=== PATIENT | male | born 1940 | race Caucasian/White ===

== ENCOUNTER 2019-01-05 16:55 | Inpatient (IN) | payer OTHER ==
[~2019-01-05] VITALS: Ht 165.1 cm; Wt 137.0 kg
[2019-01-05 20:00] LABS: Basophils # (auto) 0.1 uL; Basophils % (auto) 0.3 % (0.0-2.0); Eosinophils # (auto) 0 uL; Hematocrit 48.4 % (41.0-53.0); Hemoglobin 15.7 g/dL (13.5-17.5); Lymphocytes # (auto) 0.4 uL; Lymphocytes % (auto) 1.6 % (10.0-50.0); Mean Corpuscular Hemoglobin 28.2 pg (28.0-32.0); Mean Corpuscular Hgb Conc. 32.4 g/dL (32.0-36.0); Mean Corpuscular Volume 87.1 fL (80.0-100.0); Monocytes # (auto) 1.7 uL; Monocytes % (auto) 6.8 % (0.0-12.0); Neutrophils # (auto) 22.6 uL; Neutrophils % (auto) 91.3 % (37.0-80.0); Nucleated Red Blood Cells % 0.1 %; Platelet Count (auto) 160 10^3/uL (140-450); Red Blood Cells 5.55 10^6/uL (4.5-5.90); Red Cell Distribution Width 15.6 % (11.8-14.3); White Blood Cell 24.8 10^3/uL (4.4-10.8)
[2019-01-05 20:16] LABS: Albumin 3.8 g/dL (3.4-5.0); Calcium 9.1 mg/dL (8.5-10.1); Magnesium 2.7 mg/dL (1.6-2.6)
[2019-01-05 20:18] LABS: Lactic Acid w/Reflex 2.8 mmol/L (0.4-2.0)
[2019-01-05 20:25] LABS: BUN/Creatinine Ratio 15.2; Bilirubin, Total 0.6 mg/dL (0.2-1.0); Total Protein 7.4 g/dL (6.4-8.2)
[2019-01-05] MEDS ORDERED: ACETAMINOPHEN 325 MG TAB PO ONE (20:45)
[2019-01-05] MEDS ORDERED: PIPERACILLIN-TAZOB 3.375GM 100 ML IV ONE (21:00)
[2019-01-05] MEDS ORDERED: VANCOMYCIN 1GM/250ML 250 ML IV ONE (21:00)
[2019-01-05] MEDS ORDERED: SODIUM CHLORIDE 0.9% 3,400 ML IV ONE (21:00)
[2019-01-05 21:29] LABS: INR 0.94 (0.9-1.15); Partial Thromboplastin Time 22.5 sec (23.78-33.04); Prothrombin Time 10.1 sec (9.27-12.13)
[2019-01-05 22:53] LABS: Urine Bacteria NONE SEEN /hpf (None Seen); Urine Blood 2+ /uL (Negative); Urine Specific Gravity 1.021 (1.001-1.035); Urine WBC 3 /hpf (0 - 3)
[2019-01-06] MEDS ORDERED: ONDANSETRON HCL 4 MG/2 ML VIAL IV PRN (00:30)
[2019-01-06] MEDS ORDERED: DOCUSATE SOD 100 MG CAP PO PRN (00:30)
[2019-01-06] MEDS ORDERED: NITROGLYCERIN 0.4 MG SL TAB SL PRN (00:30)
[2019-01-06] MEDS ORDERED: HYDROcodone-ACET 5/325MG TAB PO PRN (00:30)
[2019-01-06] MEDS ORDERED: TEMAZEPAM 15 MG CAP PO PRN (00:30)
[2019-01-06] MEDS ORDERED: VANCOMYCIN PER PHARMACY 0 MG IV SCH (00:30)
[2019-01-06] MEDS ORDERED: ACETAMINOPHEN 325 MG TAB PO PRN (00:30)
[2019-01-06] MEDS ORDERED: MORPHINE SULF INJ 2 MG/ML SYRINGE 1ML IV PRN (00:30)
[2019-01-06] MEDS ORDERED: ATORVASTATIN 20 MG TAB PO ONE (00:30)
[2019-01-06] MEDS: SODIUM CHLORIDE 0.9% 1,000 ML IV SCH ×2 (01:29→13:50)
[2019-01-06 03:30] VITALS: BP 160/84
--- NOTE | 2019-01-06 03:30 | NUR ---
Admit to [facility] JAI HERNANDEZ admitted to [facility] via hospital bed on mechanical development engineer, and portable 02. Patient connected to unit monitoring and oxygen, and weighed by bed scale. Patient oriented to Diann mejia RN, unit, room, bed, and unit policies regarding patient care and visiting hours. Pt verbalized understanding. Pt is awake and alert, but A&O x1, able to answer simple questions. Pt stated he cannot remember in many questions regarding admission questions, will chart as many as possible regarding admission questions. Breathing on O2NC 2LPM, good POX but SOB at rest, wheezing at upper airway, lungs sound CTA, RR 28/ursula, unable to finish the sentence. TLC at right IJ, flushed well, CDI site, infusing NS at 75ml/hr. Dorsey's cath hung to gravity with clear light yamila urine. Both legs swollen +1. Put SCD to right leg. Left leg redness and c/o mild pain, tiny skin tear at left heel, will d/s and put on band-aid. Bed in low position, call light within reach, all alarms are audible, fall and safety precaution in place.
[2019-01-06] MEDS: PIPERACILLIN-TAZOB 3.375GM 100 ML IV SCH ×3 (05:59→17:51)
[2019-01-06] MEDS: FUROSEMIDE 20 MG TAB PO SCH ×2 (06:03→17:52)
--- NOTE | 2019-01-06 07:30 | NUR ---
RECEIVED PATIENT `SEMI FOWLERS IN BED, AWAKEN WHEN NAME WAS CALLED, A/O TIMES 2, O2 AT 2L BY N/C, PATIENT IS VERY HARD OF HEARING, AN SLIGHTLY CONFUSED, RECINOS TO GRAVITY, SCD TO THE RT LEG, LEFT IS SWOLLEN ,RED AND WARM TO THE TOUCH, TLC TO THE RT JUGULAR WITH NS INFUSING AT 75ML/HR BY THE IV PUMP, DENIES PAIN
[2019-01-06 07:45] VITALS: BP 133/83
[2019-01-06] MEDS ORDERED: OME20T PO (07:46)
[2019-01-06] MEDS ORDERED: LISI10TA6 PO (07:46)
[2019-01-06] MEDS ORDERED: CALCTAB25 PO (07:46)
[2019-01-06] MEDS ORDERED: VENL150C2 PO (07:46)
[2019-01-06] MEDS ORDERED: ASPI81TA27 PO (07:46)
[2019-01-06] MEDS ORDERED: FURO20TA3 PO (07:46)
[2019-01-06] MEDS ORDERED: FENO54TA4 PO (07:46)
[2019-01-06] MEDS ORDERED: FELO10TA PO (07:46)
[2019-01-06] MEDS ORDERED: POTA1TAB61 PO (07:46)
[2019-01-06] MEDS ORDERED: TAMS0.4C36 PO (07:47)
[2019-01-06] MEDS ORDERED: MORP-109 PO (07:47)
--- NOTE | 2019-01-06 08:00 | NUR ---
SPOKE TO THE DAUGHTER KAITLIN AND STATED HE BREATHES VERY SHALLOW AT HOME ALL OF THE TIME, IT'S HIS NORM
--- NOTE | 2019-01-06 08:30 | NUR ---
PATIENT WAS ASSISTED WITH EATING HIS BREAKFAST
--- NOTE | 2019-01-06 08:33 | NUR ---
I faxed clinical information to [facility] [phone] including ER notes, H&P, xrays, current vitals, current labs and current medication list.
--- NOTE | 2019-01-06 09:30 | NUR ---
INJECTED FOR THE STRESS TEST Addendum: 01/06/19 at 1129 by Amy Mckeon RN DISREGARD WRONG PATIENT
--- NOTE | 2019-01-06 09:30 | NUR ---
SEMI FOWLERS IN BED, WITH EYES CLOSED APPEARS TO BE SLEEPING
[2019-01-06] MEDS: ASPirin 81 mg TAB PO SCH (10:44)
[2019-01-06] MEDS: LISINOPRIL 10 MG TAB PO SCH (10:45)
--- NOTE | 2019-01-06 10:45 | NUR ---
DR ENG IN TO SEE THE PATIENT
[2019-01-06] MEDS: VANCOMYCIN 1GM/250ML 250 ML IV SCH ×2 (10:49→22:59)
--- NOTE | 2019-01-06 10:50 | NUR ---
DISCUSSED MEDICATIONS WITH THE PATIENT REGARDING THE DOSAGE, USAGE, AND THE SIDE EFFECTS, VERBALIZED THAT HE UNDERSTOOD
--- NOTE | 2019-01-06 10:50 | NUR ---
TAKEN TO STRESS TEST BY THE BED, WITH NURSE MARII Addendum: 01/06/19 at 1129 by Amy Mckeon RN DISREGARD WRONG PATIENT
[2019-01-06] MEDS: PANTOPRAZOLE 40 MG TAB PO SCH (10:51)
--- NOTE | 2019-01-06 11:00 | NUR ---
WOUND CARE NOTE: IN TO SEE PATIENT AT THIS TIME PER WOUND CARE CONSULT REQUEST. PATIENT RECENTLY ADMITTED TO [facility] WITH DIAGNOSIS OF SEPSIS. CURRENT PATRIC SCORE IS 15. PATIENT CAN TURN WITH MINIMAL ASSISTANCE BY STAFF. PATIENT NOTED UPON ADMIT TO HAVE A SMALL SKIN TEAR TO THE LEFT POSTERIOR HEEL. WOUND PHOTO TAKEN AT THAT TIME BY BEDSIDE NURSE FOR REFERENCE. WOUND MEASURES .5 X .5 CM. WOUND BED AND PERIWOUND IS PINK. SCANT SEROUS DRAINAGE NOTED. APPLIED THERAHONEY, BANDAID. SACRAL SKIN IS PINK, BLANCHABLE, INTACT, ARE OTHER BONY PROMINENCES. RECOMMEND: FREQUENT TURN SCHEDULE Q2 HOURS, PRN CONDITION PERMITS, WITH PRESSURE REDISTRIBUTION USING PILLOWS/WEDGES, BID/PRN APPLICATION WITH MOISTURE BARRIER CREAM AND OPTIFOAM GENTLE SACRAL DRESSING, EOD/PRN DRESSING CHANGE TO SKIN TEAR TO LEFT POSTERIOR HEEL, DIETARY CONSULT, SKIN/WOUND CARE PLAN, CONTINUED MONITORING BY WOUND CARE TEAM. Addendum: 01/06/19 at 1643 by Kimberly Anguiano RN Amended: Links added.
--- NOTE | 2019-01-06 11:29 | NUR ---
WOUND CARE NURSE MELISSA KEATING TO SEE THE PATIENT
[2019-01-06 11:47] VITALS: BP 132/70
--- NOTE | 2019-01-06 12:30 | NUR ---
SAT UP IN BED AND ATE HIS LUNCH NO HELP NEEDED FAMILY AT THE BEDSIDE
[2019-01-06] MEDS: amLODIPine BESYLATE 5 MG TAB PO SCH (12:33)
--- NOTE | 2019-01-06 13:00 | NUR ---
DR GUERRIER INTO SEE THE PATIENT, AND WROTE ORDERS FOR V-Q MAGANA AND MED NEB TX FOR THE WHEEZING
[2019-01-06] MEDS ORDERED: PANTOPRAZOLE 40 MG/10 ML VIAL INJ IV ONE (13:30)
[2019-01-06] MEDS ORDERED: ENOXAPARIN SOD 40 MG/0.4 ML SYRINGE SC ONE (13:30)
--- NOTE | 2019-01-06 14:07 | NUR ---
family left and went home,
--- NOTE | 2019-01-06 14:29 | NUR ---
URINE SPECIMEN COLLECTED AND SENT
--- NOTE | 2019-01-06 14:30 | NUR ---
SPOKE WITH [facility] IN [facility] AND STATED IS NOT ABLE TO DO THE V-Q SCAN DUE TO PATIENT'S SIZE 276LBS AND PATIENT HAS LARGE CHEST AND ABD
--- NOTE | 2019-01-06 14:32 | NUR ---
WILL ORDER US OF THE LEGS DUE TO REDNESS
--- NOTE | 2019-01-06 14:45 | NUR ---
EXPLAIN TO DR GUERRIER THAT THE PATIENT WILL NOT BE ABLE TO HAVE A V-Q DUE TO HIS SIZE AND HE WILL ORDER LOVENOX Addendum: 01/06/19 at 1711 by Amy Mckeon RN CHANGE TIME TO 0484
--- NOTE | 2019-01-06 15:05 | NUR ---
CALL FROM AMANDA AT [facility] TO SEE HOW THE PATIENT IS DOING AND WHAT TEST WE ARE DOING ON HIM
--- NOTE | 2019-01-06 15:39 | NUR ---
RT IN TO SEE THE PATIENT AND ACCESS HIS BREATHING
[2019-01-06 15:45] VITALS: BP 126/69
[2019-01-06 16:09] VITALS: BP 126/69
--- NOTE | 2019-01-06 16:45 | NUR ---
JEANNIE OPENS HIS EYES WHEN YOU WALK INTO THE ROOM
--- NOTE | 2019-01-06 17:39 | NUR ---
LYING IN BED WITH EYES CLOSED, OPENS EYES WHEN YOU WALK INTO THE ROOM
[2019-01-06] MEDS: ALBUTEROL SULF 2.5 MG/0.5ML(0.5%) NEB SOLN NEB SCH (18:15)
--- NOTE | 2019-01-06 18:30 | NUR ---
SITTING UP IN THE BED EATING HIS DINNER AFTER RECEIVING A BREATHING TREATMENT, O2 AT 1L BY N/C, A/O TIMES 2, RECINOS TO GRAVITY, SCD TO THE RT LEG, LEFT LEG IS SWOLLEN AND RED AND WARM TO THE TOUCH, DENIES PAIN, NO COMPLAINTS OF PAIN, ANTIBIOTICS INFUSING INTO THE RT JUGULAR BY THE IV PUMP, WILL CONTINUE TO MONITOR AND GIVE REPORT TO THE NEXT SHIFT
[2019-01-06 19:45] VITALS: BP 131/86
[2019-01-06] MEDS: ATORVASTATIN 20 MG TAB PO SCH (22:58)
[2019-01-07] MEDS: ALBUTEROL SULF 2.5 MG/0.5ML(0.5%) NEB SOLN NEB SCH ×5 (00:07→23:37)
[2019-01-07 05:00] LABS: Basophils # (auto) 0.1 uL; Basophils % (auto) 1.2 % (0.0-2.0); Eosinophils # (auto) 0 uL; Eosinophils % (auto) 0.4 % (0.0-7.0); Hematocrit 41.9 % (41.0-53.0); Hemoglobin 13.7 g/dL (13.5-17.5); Lymphocytes % (auto) 7.8 % (10.0-50.0); Mean Corpuscular Hgb Conc. 32.8 g/dL (32.0-36.0); Mean Corpuscular Volume 85.4 fL (80.0-100.0); Monocytes # (auto) 0.9 uL; Monocytes % (auto) 7.6 % (0.0-12.0); Neutrophils # (auto) 10.3 uL; Nucleated Red Blood Cells % 0.1 %; Platelet Count (auto) 127 10^3/uL (140-450); Red Blood Cells 4.91 10^6/uL (4.5-5.90); Red Cell Distribution Width 15.4 % (11.8-14.3); White Blood Cell 12.4 10^3/uL (4.4-10.8)
[2019-01-07 05:12] LABS: Albumin 2.8 g/dL (3.4-5.0); Calcium 8.5 mg/dL (8.5-10.1); Potassium 3.7 mmol/L (3.5-5.1)
[2019-01-07 05:16] LABS: Bilirubin, Total 0.6 mg/dL (0.2-1.0); Total Protein 6.3 g/dL (6.4-8.2)
[2019-01-07] MEDS: SODIUM CHLORIDE 0.9% 1,000 ML IV SCH ×2 (06:43→16:30)
[2019-01-07] MEDS: PIPERACILLIN-TAZOB 3.375GM 100 ML IV SCH ×4 (06:44→17:58)
[2019-01-07] MEDS: FUROSEMIDE 20 MG TAB PO SCH ×2 (06:48→17:59)
--- NOTE | 2019-01-07 07:30 | NUR ---
RECEIVED PATIENT SEMI FOWLERS IN BED, O2 AT 1L BY N/C, A/O TIMES 1 TO SELF, RECINOS TO GRAVITY, SCD TO THE RT LEG, LEFT LEG RED AND WARM TO THE TOUCH, TLC TO THE RT JUGULAR WITH ANTIBIOTICS INFUSING AT 33.33ML/HR BY THE IV PUMP, DENIES PAIN
[2019-01-07 07:50] VITALS: BP 163/79
--- NOTE | 2019-01-07 08:00 | NUR ---
PATIENT CLEANED HAD A LARGE BM IN THE BED, INCONTINENT OF STOOL
--- NOTE | 2019-01-07 08:30 | NUR ---
SAT UP IN BED AND ATE HIS BREAKFAST NO HELP NEEDED
--- NOTE | 2019-01-07 08:30 | NUR ---
DR GUERRIER IN TO SEE THE PATIENT AND ORDERED FOR THE PATIENT TO BE TRANSFERRED TO [place]
--- NOTE | 2019-01-07 09:00 | NUR ---
CLEANED PATIENT UP AGAIN, HAD A LARGE BM IN THE BED STILL INCONTINENT
[2019-01-07] MEDS ORDERED: PANTOPRAZOLE 40 MG/10 ML VIAL INJ IV SCH (10:00)
--- NOTE | 2019-01-07 10:00 | NUR ---
EXPLAIN MEDICATIONS TO THE PATIENT REGARDING THE DOSAGE,USAGE, AND THE SIDE EFFECTS, STATED HE UNDERSTOOD AND MEDS GIVEN ORDERED
[2019-01-07] MEDS: amLODIPine BESYLATE 5 MG TAB PO SCH (10:09)
[2019-01-07] MEDS: LISINOPRIL 10 MG TAB PO SCH (10:10)
[2019-01-07] MEDS: PANTOPRAZOLE 40 MG TAB PO SCH (10:10)
[2019-01-07] MEDS: ENOXAPARIN SOD 40 MG/0.4 ML SYRINGE SC SCH (10:11)
[2019-01-07] MEDS: ASPirin 81 mg TAB PO SCH (10:11)
--- NOTE | 2019-01-07 10:30 | NUR ---
AND SON IN TO SEE THE PATIENT
--- NOTE | 2019-01-07 10:45 | NUR ---
EXPLAIN TO THE THAT THEY WANTED TO TRANSFER THE PATIENT TO [employer] AND SHE SIGNED THE CONSENT FOR ACKNOWLEDGEMENT OF TRANSFER
--- NOTE | 2019-01-07 10:55 | NUR ---
PAGED JAMES STEPHENSON FROM REGARDING THE TRANSFER AND GAVE THE NUMBER TO FAX THE INFORMATION TOO
[2019-01-07] MEDS: VANCOMYCIN 1GM/250ML 250 ML IV SCH (11:17)
--- NOTE | 2019-01-07 11:33 | NUR ---
INFORMATION FAXED TO [facility] FOR TRANSFER
--- NOTE | 2019-01-07 11:50 | NUR ---
LEFT AND WENT HOME,
[2019-01-07 12:00] VITALS: BP 147/72
--- NOTE | 2019-01-07 12:01 | NUR ---
PATIENT BEING CLEANED HAD ANOTHER SOFT BM
--- NOTE | 2019-01-07 13:17 | NUR ---
SAT UP IN BED AND ATE HIS LUNCH NO HELP
--- NOTE | 2019-01-07 14:30 | NUR ---
PATIENT SITTING UP IN THE BED, WITH EYES CLOSED NO COMPLAINTS
--- NOTE | 2019-01-07 14:56 | NUR ---
Nutrition consult/assessment Notes Please see attached link for complete assessment Est. Needs ABW 100k-2000kcal (17-20 kcal/kgBW), 80-100 gms pro (0.8-1.0 gms/kgBW r/t rekha crerizwana, wounds). Will continue to monitor pertinent labs and reassess nutrient need prn Addendum: 01/07/19 at [address] Amended: Links added.
--- NOTE | 2019-01-07 15:40 | NUR ---
PATIENTS SEMI FOWLERS IN BED, NO COMPLAINTS
[2019-01-07 15:50] VITALS: BP 141/84
--- NOTE | 2019-01-07 16:10 | NUR ---
PATIENT BEING TRANSFERRED TO ROOM 204 BY THE BED, , BEING PLACED ON TELE T-27, NOTIFIED DENICE , WHO STATED THAT [facility] CALLED HER AND ASK IF SHE WANTED THE PATIENT TO BE TRANSFERRED AND SHE TOLD THEM NO, [facility] REP TOLD HER THAT THE PATIENT COULD STAY HERE LONG HE NEEDED TO, I HAVE NOT RECEIVED A CALL FROM [facility] REGARDING THIS MATTER
--- NOTE | 2019-01-07 17:01 | NUR ---
REPORT CALLED TO ARSENIO ROSENBERG
--- NOTE | 2019-01-07 17:19 | NUR ---
PATIENT TRANSPORTED TO ROOM 204 BY THE BED WITH ALL BELONGINGS INCLUDING LT AND RT HEARING AIDS, UPPER AND LOWER DENTURES, RING AND WATCH
--- NOTE | 2019-01-07 17:26 | NUR ---
Transfer Patient arrive to the floor to room 204. Received report from [facility] prior to patient arrival. Patient is alert and oriented x 3 with some confusion. Very pleasant. Audible wheezing, but lungs are clear, diminished. Edema to BLE - LLE is warm and red. SCD on right leg. [facility] nurse reported that DVT is negative and MRSA is negative. Patient is a "[facility] pt" and was going to transfer to [facility], but per [facility] nurse, [facility] spoke with patient's at 1600 and she said she didn't want to transfer him there, but [facility]. Patient bed elevated, patient declines use of a pillow and says he is more comfortable without it. Oriented to call light. Provided ice water. BS active. HR regular. NS running at 75. Patient has glasses, dentures, hearing aids, and is wearing a watch and wedding ring.
--- NOTE | 2019-01-07 19:15 | NUR ---
Opening Shift Note Assumed care of patient, awake and alert. No pain. Patient verbalized mild SOB with wheezing noted. Patient received breathing treatment an hour ago. Vitals within normal limits. O2 saturation currently at 96% on 4L o2 via nasal cannula. Instructed on POC and to call for assist PRN, will continue to monitor for changes Q1hr and PRN. Side rails up x2. Bed locked in lowest position. Call light within reach. Family at bedside for safety.
[2019-01-07] MEDS: VANCOMYCIN 1,250 MG in D5W 5% 250 ML IV SCH (21:04)
[2019-01-07] MEDS: ATORVASTATIN 20 MG TAB PO SCH (21:04)
[2019-01-07 21:48] VITALS: BP 153/76
--- NOTE | 2019-01-07 22:49 | NUR ---
Tele monitor Patient had a 4 second pause on tele monitor. Patient asymptomatic. EKG done with result of Sinus rhythm at 99bpm. Hospitalist made aware. Continue care
--- NOTE | 2019-01-08 | NUR ---
Spoke with hospitalist Discussed with hospitalist METALLURGICAL TESTER Jonathan Rodriguez about patient current status. Red colored urine in the de leon bag noted. Received order for a urinalysis and H&H which will be included in the am labs. Wheezing on upper airway noted even after breathing treatment Ventolin. Patient currently at 96% on 3L nasal canula. Received order to add another breathing treatment of Atrovent 0.5mg Q4PRN.
[2019-01-08] MEDS: PIPERACILLIN-TAZOB 3.375GM 100 ML IV SCH ×4 (00:04→18:19)
[2019-01-08 05:00] VITALS: BP 162/86
[2019-01-08 05:34] LABS: Basophils # (auto) 0.1 uL; Basophils % (auto) 0.5 % (0.0-2.0); Eosinophils # (auto) 0.2 uL; Eosinophils % (auto) 1.5 % (0.0-7.0); Lymphocytes # (auto) 0.9 uL; Lymphocytes % (auto) 8.3 % (10.0-50.0); Mean Corpuscular Hemoglobin 28.7 pg (28.0-32.0); Mean Corpuscular Hgb Conc. 33.4 g/dL (32.0-36.0); Monocytes # (auto) 1.1 uL; Monocytes % (auto) 10.4 % (0.0-12.0); Neutrophils # (auto) 8.3 uL; Neutrophils % (auto) 79.3 % (37.0-80.0); Nucleated Red Blood Cells % 0.1 %; Platelet Count (auto) 136 10^3/uL (140-450); Red Blood Cells 4.89 10^6/uL (4.5-5.90); Red Cell Distribution Width 15.5 % (11.8-14.3); White Blood Cell 10.5 10^3/uL (4.4-10.8)
[2019-01-08] MEDS: SODIUM CHLORIDE 0.9% 1,000 ML IV SCH (05:50)
[2019-01-08 06:01] LABS: Potassium 4.1 mmol/L (3.5-5.1)
[2019-01-08 06:08] LABS: Albumin 2.8 g/dL (3.4-5.0); BUN/Creatinine Ratio 10.2; Bilirubin, Total 0.7 mg/dL (0.2-1.0); Total Protein 6.8 g/dL (6.4-8.2)
[2019-01-08] MEDS: FUROSEMIDE 20 MG TAB PO SCH ×2 (06:24→18:18)
[2019-01-08] MEDS: ALBUTEROL SULF 2.5 MG/0.5ML(0.5%) NEB SOLN NEB SCH ×3 (06:41→18:38)
[2019-01-08] MEDS: IPRATROPIUM BROM 0.5 MG/2.5ML INH SOL NEB PRN ×2 (06:41→11:20)
--- NOTE | 2019-01-08 07:03 | NUR ---
Endorsed care to day shift RN.
[2019-01-08 07:35] LABS: Urine Bacteria NONE SEEN /hpf (None Seen); Urine Blood 2+ /uL (Negative); Urine Specific Gravity 1.014 (1.001-1.035); Urine WBC 32 /hpf (0 - 3)
--- NOTE | 2019-01-08 08:00 | NUR ---
Opening Shift Note Assumed care of patient, awake and alert. No S/S of distress or pain. Instructed on POC and to call for assist PRN, will continue to monitor for changes Q1hr and PRN.
[2019-01-08] MEDS: VANCOMYCIN 1,250 MG in D5W 5% 250 ML IV SCH ×2 (08:38→21:10)
[2019-01-08 09:00] VITALS: BP 182/85
[2019-01-08] MEDS: ENOXAPARIN SOD 40 MG/0.4 ML SYRINGE SC SCH (09:05)
[2019-01-08] MEDS: amLODIPine BESYLATE 5 MG TAB PO SCH (09:06)
[2019-01-08] MEDS: PANTOPRAZOLE 40 MG TAB PO SCH (09:09)
[2019-01-08] MEDS: ASPirin 81 mg TAB PO SCH (09:09)
[2019-01-08] MEDS: LISINOPRIL 10 MG TAB PO SCH (09:10)
--- NOTE | 2019-01-08 11:22 | NUR ---
[facility] TRANSFER MD EXPLAINED TO AND DAUGHTER THAT THE PATIENT NEEDS TO BE TRANSFERRED TO [facility] BECAUSE HE IS A [facility] PATIENT AND NEEDS A PICC LINE AND HOME HEALTH FOR ANTIBIOTICS AT HOME X 2 WEEKS TO TREAT THE SEPSIS. AFTER EXPLAINING, THE AGREED TO TRANSFER HIM. [facility] WAS CALLED AND INFORMATION WAS FAXED TO THEM. THIS NURSE RECEIVED A CALL STATING THAT THE DIDN'T WANT THE PATIENT TRANSFERRED TO THE [facility] IT WAS TOO FAR FOR HER, BUT THE [facility] LOCATION DOESN'T AVE A BED AVAILABLE. THIS NURSE EXPLAINED HOW IMPORTANT THE TRANSFER IS AND THAT THE MD ORDERED THE TRANSFER STAT. [facility] SAID THEY WOULD CONTACT THE WITH THAT INFORMATION. NO REPLY FROM [facility] AT THIS TIME.
[2019-01-08 12:59] VITALS: BP 166/89
--- NOTE | 2019-01-08 14:16 | NUR ---
TRANSFER/FAMILY/[facility] CALLED TWICE ASKING ABOUT THE TRANSFER. THEY WERE INFORMED THAT THIS NURSE HAD NOT HEARD ANYTHING BACK FROM [facility]. THEY SAID [facility] HAD TRIED CALLING THEM A FEW TIMES AND WHEN THEY TRIED CALLING BACK TO THE NUMBER THAT SHOWED UP, THEY COULDN'T REACH ANYONE. THIS NURSE CALLED [facility] AND THEY SAID THEY WOULD LOOK INTO IT AND CALL BACK.
[2019-01-08 17:00] VITALS: BP 167/73
--- NOTE | 2019-01-08 19:00 | NUR ---
Opening Shift Note Assumed care of patient, awake and alert. No S/S of distress/SOB or pain. Instructed on POC and to call for assist PRN, will continue to monitor for changes Q1hr and PRN. Side rails up x2. Bed locked in lowest position. Call light within reach.
[2019-01-08] MEDS: ATORVASTATIN 20 MG TAB PO SCH (21:11)
[2019-01-08 22:00] VITALS: BP 163/94
[2019-01-09] VITALS (7 sets, daily range): BP systolic 133–158; BP diastolic 62–88
[2019-01-09] MEDS: ALBUTEROL SULF 2.5 MG/0.5ML(0.5%) NEB SOLN NEB SCH ×4 (00:23→18:08)
[2019-01-09] MEDS: PIPERACILLIN-TAZOB 3.375GM 100 ML IV SCH ×2 (01:23→07:00)
[2019-01-09] MEDS: SODIUM CHLORIDE 0.9% 1,000 ML IV SCH ×2 (01:23→08:30)
--- NOTE | 2019-01-09 02:46 | NUR ---
Rounds Patient in awake with wheezing noted. Patient verbalized "I feel great". O2 saturation at 95% on 2L o2 via nasal cannula. Patient had a soft moderate amount bowel movement. Patient cleaned and chucks changed. Mild shortness of breath noted. O2 sat remains at 95%. Will continue to monitor.
--- NOTE | 2019-01-09 04:23 | NUR ---
Afib with RVR High heart rate of 140 bpm noted on tele monitor. EKG done with result of Afib with RVR at 145bpm. Spoke with Hospitalist Jonathan Worley. Ordered Diltiazem 10mg IV ONCE now.
[2019-01-09] MEDS ORDERED: DILTIAZEM HCL 25 MG/5 ML VIAL IV ONE (04:30)
--- NOTE | 2019-01-09 05:10 | NUR ---
Hospitalist Called/paged MILK TANKER DRIVER Jonathan Rodriguez called re: Afib with RVR not improving after administration of Diltiazem 10mg IV . Waiting for call back. Continue care.
--- NOTE | 2019-01-09 05:40 | NUR ---
Spoke to Hospitalist TERRAZZO LAYER Jonathan Rodriguez ordered Digoxin 0.125mg IV once and may repeat after 20 mins. if there is no improvement with patients heart rate.
[2019-01-09] MEDS ORDERED: DIGOXIN (250MCG/ML) 2 ML AMPULE IV ONE ×2 (05:45→06:45)
[2019-01-09 06:04] LABS: Basophils # (auto) 0.1 uL; Basophils % (auto) 0.5 % (0.0-2.0); Eosinophils # (auto) 0.3 uL; Eosinophils % (auto) 2.7 % (0.0-7.0); Hematocrit 43.4 % (41.0-53.0); Hemoglobin 14.3 g/dL (13.5-17.5); Lymphocytes # (auto) 1.1 uL; Lymphocytes % (auto) 9.5 % (10.0-50.0); Mean Corpuscular Hemoglobin 28.3 pg (28.0-32.0); Mean Corpuscular Volume 85.7 fL (80.0-100.0); Monocytes # (auto) 1.3 uL; Monocytes % (auto) 11.5 % (0.0-12.0); Neutrophils # (auto) 8.5 uL; Neutrophils % (auto) 75.8 % (37.0-80.0); Platelet Count (auto) 161 10^3/uL (140-450); Red Blood Cells 5.06 10^6/uL (4.5-5.90); Red Cell Distribution Width 14.9 % (11.8-14.3); White Blood Cell 11.2 10^3/uL (4.4-10.8)
[2019-01-09 06:30] LABS: Albumin 2.9 g/dL (3.4-5.0); Calcium 8.9 mg/dL (8.5-10.1); Potassium 4.2 mmol/L (3.5-5.1)
[2019-01-09 06:32] LABS: BUN/Creatinine Ratio 13.1
[2019-01-09] MEDS: FUROSEMIDE 20 MG TAB PO SCH ×2 (07:00→18:17)
--- NOTE | 2019-01-09 07:25 | NUR ---
Endorsed care to day shift RN.
--- NOTE | 2019-01-09 07:30 | NUR ---
Opening Shift Note Assumed care of patient, comfortably resting in bed, patient aox3, on 2L. No S/S of distress/SOB or pain. Bed at lowest position and call light within reach. Instructed on POC and to call for assist PRN, will continue to monitor for changes Q1hr and PRN.
--- NOTE | 2019-01-09 08:58 | NUR ---
I faxed transfer order to [facility] along with updated clinical information including current MD progress notes, current labs, current vitals and current medication list.
--- NOTE | 2019-01-09 09:27 | NUR ---
Called Veronika Simons, patients and communicated with her that we are currently working on the patients transfer to [place]. manager ecommerce has re-faxed all the current paperwork. I explained to Mrs. Banda that it is imperative for him to be transferred to [place] today. Provided her with the number for [place] transfer center as requested. Dr. Jeramy johnson.
[2019-01-09] MEDS ORDERED: cefTRIAXone 1GM/50ML D5W 50 ML IV ONE (10:00)
[2019-01-09] MEDS: LISINOPRIL 10 MG TAB PO SCH (10:40)
[2019-01-09] MEDS: ENOXAPARIN SOD 40 MG/0.4 ML SYRINGE SC SCH (10:40)
[2019-01-09] MEDS: ASPirin 81 mg TAB PO SCH (10:41)
[2019-01-09] MEDS: PANTOPRAZOLE 40 MG TAB PO SCH (10:41)
--- NOTE | 2019-01-09 10:41 | NUR ---
I spoke with [facility] Cue Worker Gerald [phone] regarding the transfer, he said he spoke with the to let her know that patient has the right to stay here because he is a [employer] senior and is more than 30 miles away from the nearest [facility] facility-according to him, she is on her way here and will then let us know whether or not she wants him transferred to [facility]. I spoke with patient's nurse Soheila and asked her to have the call me when she arrives.
[2019-01-09] MEDS: amLODIPine BESYLATE 5 MG TAB PO SCH (10:42)
--- NOTE | 2019-01-09 11:19 | NUR ---
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 I called [facility] and spoke with insurance case manager Gerald, he is working on the transfer and will give me a call back.
--- NOTE | 2019-01-09 11:30 | NUR ---
Received a call from Gerald marrero at [facility], gave him a brief report on patient.
--- NOTE | 2019-01-09 14:26 | NUR ---
Paged RT for a PRN breathing treatment.
--- NOTE | 2019-01-09 14:30 | NUR ---
Nelly from [facility] in the outside utilization department called to inform me that patient has a bed in room 322 . Call to give report to . Transfer picking belt operator time at 21:00. Leticiaausten states that she will call at 20:00 to get recent Vital Signs. Nelly's contact # .
--- NOTE | 2019-01-09 15:18 | NUR ---
Second page for RT.
--- NOTE | 2019-01-09 17:58 | NUR ---
Patient is wheezing and c/o SOB, currently on 2 L NC saturations are at 95%. Called RT regarding patient's PRN breathing treatment, Spoke to RT Matthew, he states that they are in the middle of shift change, he will address it as soon as they are done.
--- NOTE | 2019-01-09 18:00 | NUR ---
Updated Patient's on transfer information/ continuous pickling line pickler helper time.
[2019-01-09] MEDS: IPRATROPIUM BROM 0.5 MG/2.5ML INH SOL NEB PRN (18:08)
--- NOTE | 2019-01-09 18:15 | NUR ---
AUDIBLE UPPER AIRWAY EXPIRATORY WHEEZE HEARD, LUNGS ARE DIMINISHED T/O. Addendum: 01/09/19 at 1817 by CHANG PIZANO RT RT Amended: Links added.
--- NOTE | 2019-01-09 22:48 | NUR ---
Pt being trans to another hosp Order obtained for transfer of JAI HERNANDEZ to . Report called/given to . Report given to EMS transport team. Medication reconciliation form completed and copy given to patient. Transported via [facility] along with copied chart and imaging films/disk and all personal belongings. No distress noted on time of departure. Family notified of destination and room number, verbalized understanding. NOTE:
[2019-01-10] MEDS ORDERED: CEFTRIAXONE SODIUM 2 GM in D5W 5% 50 ML IV SCH (09:00)
[2019-01-10] MEDS ORDERED: cefTRIAXone 1GM/50ML D5W 50 ML IV SCH (10:00)
== END 2019-01-09 22:37 | disposition short-term general hospital (02) | DRG 871 ==
LOC: EDBD 16:55 → ER 16:55 → TELE 01-06 00:25 → DOU IN ICU 01-06 03:29 → TELE-CENTR 01-07 17:08
PROVIDERS: ADMIT Nurse Practitioner; ATTEND Family Medicine
PROC: 02HV33Z Insertion of Infusion Device into Superior Vena Cava, Percutaneous Approach (ICD-10-PCS; principal; 2019-01-06)
PROC: B548ZZA Ultrasonography of Superior Vena Cava, Guidance (ICD-10-PCS; 2019-01-06)
DX: A41.1 Sepsis due to other specified staphylococcus (principal); G93.41 Metabolic encephalopathy; N39.0 Urinary tract infection, site not specified; Z68.43 Body mass index [BMI] 50.0-59.9, adult; I13.0 Hypertensive heart and chronic kidney disease with heart failure and stage 1 through stage 4 chronic kidney disease, or unspecified chronic kidney disease; E11.22 Type 2 diabetes mellitus with diabetic chronic kidney disease; N18.3 Chronic kidney disease, stage 3 (moderate); E66.9 Obesity, unspecified; I50.9 Heart failure, unspecified; E78.00 Pure hypercholesterolemia, unspecified; E11.65 Type 2 diabetes mellitus with hyperglycemia; E78.5 Hyperlipidemia, unspecified; E86.0 Dehydration; F03.90 Unspecified dementia, unspecified severity, without behavioral disturbance, psychotic disturbance, mood disturbance, and anxiety; G47.33 Obstructive sleep apnea (adult) (pediatric); I25.10 Atherosclerotic heart disease of native coronary artery without angina pectoris; K21.9 Gastro-esophageal reflux disease without esophagitis; K76.0 Fatty (change of) liver, not elsewhere classified; M19.90 Unspecified osteoarthritis, unspecified site; M85.80 Other specified disorders of bone density and structure, unspecified site; I48.91 Unspecified atrial fibrillation; Z86.73 Personal history of transient ischemic attack (TIA), and cerebral infarction without residual deficits; Z87.442 Personal history of urinary calculi
CPT/HCPCS: 36415; 51702; 70450; 71045; 74176; 80053; 80202; 81001; 82565; 83605; 83735; 83880; 84484; 85025; 85379; 85610; 85730; 87040; 87077; 87081; 87086; 87186; 93005; 93970; 94640; 96365; 96367; 96372; G0378; J0696; J2543; J7060

== ENCOUNTER 2020-06-08 14:02 | Emergency (ER) | payer OTHER ==
[~2020-06-08] VITALS: Ht 190.5 cm; Wt 136.1 kg
[2020-06-08 14:02] VITALS: BP 0/0
[~2020-06-08 14:02] MED LIST: ASPI-543 PO; CALCTAB25 PO; FELO10TA3 PO; FENO54TA4 PO; FURO20TA3 PO; LISI-648 PO; MORP-109 PO; OME20T PO; POTA1TAB61 PO; TAMS0.4C36 PO; VENL150C2 PO
[2020-06-08] MEDS ORDERED: CALCIUM CHLOR(10%) 100MG/ML 10ML SYRINGE IV ONE (14:03)
[2020-06-08] MEDS ORDERED: EPINEPHrine HCL 1 MG/10 ML SYRG IV ONE (14:03)
[2020-06-08] MEDS ORDERED: SODIUM BICARBONATE 8.4% INJ 50ML SYRINGE IV ONE (14:03)
[2020-06-08] MEDS ORDERED: EPINEPHrine HCL 1 MG/10 ML SYRG ONE (14:14)
== END 2020-06-08 17:40 | disposition expired ==
LOC: ER 14:02 → EDBD 14:02 → ER 17:40
DX: I46.9 Cardiac arrest, cause unspecified (principal); Z79.899 Other long term (current) drug therapy
CPT/HCPCS: 31500; 92950; 99285; J0171